=== PATIENT | female | born 1970 | race Caucasian/White ===

== ENCOUNTER 2019-01-13 21:32 | Emergency (ER) | payer OTHER ==
--- NOTE | 2019-01-13 21:45 | ED Physician Documentation ---
PD HPI MHE - Stated complaint Stated Complaint: ANXIETY - Chief complaint Chief Complaint: MHE - History obtained from History obtained from: Patient - History of Present Illness Primary symptom: Depression, Anxiety Timing - onset: Today Contributing factors: Work, Money. 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 Came home from work and has been tearful, anxious, nauseated. This seemed to bring on a headache as well. Partner says she was twitching and not interacting well, but did follow commands and talk with him.) Review of Systems Constitutional: reports: Fatigue. denies: Fever, Chills, Weight Loss Nose: denies: Rhinorrhea / runny nose, Congestion Throat: denies: Sore throat Respiratory: denies: Cough GI: reports: Nausea. denies: Abdominal Pain, Vomiting, Diarrhea Musculoskeletal: denies: Neck pain, Back pain Neurologic: reports: Altered mental status (anxious and feeling jittery/ muscle spasms), Headache. denies: Confused, Head injury Psychiatric: reports: Depressed, Suicidal (vague ideations without plan nor attempt), Anxiety. denies: Homicidal, Insomnia Endocrine: denies: Weight loss, Weight gain PD PAST MEDICAL HISTORY - Past Medical History Cardiovascular: None Respiratory: None Neuro: None Psych: Depression, Anxiety - Present Medications Home Medications: Ambulatory Orders Medication Instructions Recorded Confirmed Lorazepam [Ativan] 1 mg PO BID PRN #15 tablet 01/13/19 - Allergies Allergies/Adverse Reactions: Allergies Allergy/AdvReac Type Severity Reaction Status Date / Time No Known Drug Allergies Allergy Verified 01/13/19 22:30 PD ED PE NORMAL - Vitals Vital signs reviewed: Yes - General General: Alert and oriented X 3, Well developed/nourished, Other (seems distracted and fidgety, but can focus to answer questions. Some muscle twitches randomly. 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, No motor deficit, No sensory deficit, Normal speech Eye Opening: Spontaneous Motor: Obeys Commands Verbal: Oriented GCS Score: 15 - Psych Psych: No: Normal mood (anxious and tearful at times) Results - Vitals Vitals: Vital Signs - 24 hr 01/13/19 01/13/19 01/13/19 21:40 21:50 23:12 Temperature 36.6 C Heart Rate 59 L 56 L 57 L Respiratory 18 16 16 Rate Blood Pressure 154/97 H 148/113 H 134/83 H O2 Saturation 98 97 98 01/13/19 23:34 Temperature 36.4 C L Heart Rate 55 L Respiratory 14 Rate Blood Pressure 134/77 H O2 Saturation 95 Oxygen O2 Source Room air - Labs Labs: Laboratory Tests 01/13/19 01/13/19 01/13/19 22:29 22:29 22:29 WBC 7.8 RBC 4.28 Hgb 13.4 Hct 38.9 MCV 90.9 MCH 31.3 H MCHC 34.4 RDW 12.0 Plt Count 186 MPV 11.1 H Neut # (Auto) 4.1 Lymph # (Auto) 2.9 Ballard # (Auto) 0.4 Eos # (Auto) 0.3 Baso # (Auto) 0.1 Absolute Nucleated RBC 0.00 Nucleated RBC % 0.0 Sodium 138 Potassium 3.8 Chloride 106 Carbon Dioxide 22 Anion Gap 10.0 BUN 18 Creatinine 0.9 Estimated GFR (MDRD) 67 L Glucose 143 H Calcium 9.2 Total Bilirubin 0.7 AST 26 ALT 38 Alkaline Phosphatase 67 Total Protein 7.0 Albumin 4.0 Globulin 3.0 Albumin/Globulin Ratio 1.3 Lipase 32 TSH 3.61 PD MEDICAL DECISION MAKING - ED course Complexity details: re-evaluated patient (feels better with IV fluids and meds for nausea and anxiety. Headache also improved. Improved interaction and not seeming so anxious and not having muscle twitches. ), considered differential, d/w patient Departure - Departure Disposition: 01 Home, Self Care Clinical Impression: Stress reaction Headache Qualifiers: Headache type: unspecified Headache chronicity pattern: acute headache Intractability: not intractable Qualified Code(s): R51 - Headache Condition: Stable Record reviewed to determine appropriate education?: Yes Instructions: ED Stress React Follow-Up: [facility] [Provider Group] [facility] [Provider Group] Prescriptions: Lorazepam [Ativan] 1 mg PO BID PRN #15 tablet PRN Reason: Anxiety Comments: Stay well-hydrated. May help to seek counseling to discuss stress response and methods to deal with anxiety. Start taking your propranolol daily. You can add Lorazepam episodically if needed for anxiety. Try not to take it regularly but just when needed for more significant episodes. Follow-up with primary care regarding ongoing treatment. Discharge Date/Time: 01/14/19 00:00
[2019-01-13] MEDS ORDERED: ONDANSETRON 4 MG/2 ML VIAL IVP STA (22:02)
[2019-01-13] MEDS ORDERED: KETOROLAC 30 MG/ML VIAL IVP STA (22:02)
[2019-01-13] MEDS ORDERED: LORazepam 2 MG/ML VIAL IVP STA (22:02)
[2019-01-13] MEDS ORDERED: SODIUM CHLORIDE 0.9% 1,000 ML IV ONE (22:02)
[2019-01-13 22:34] LABS: BASOPHILS # (AUTO) 0.1 10^3/uL (0.0-0.1); BASOPHILS % (AUTO) 1.2 %; EOSINOPHILS # (AUTO) 0.3 10^3/uL (0.0-0.7); EOSINOPHILS % (AUTO) 3.6 %; HGB - HEMOGLOBIN 13.4 g/dL (12.0-16.0); LYMPHOCYTES # (AUTO) 2.9 10^3/uL (1.5-3.5); LYMPHOCYTES % (AUTO) 37.3 %; MEAN CORPUSCULAR HEMOGLOBIN 31.3 pg (27.0-31.0); MEAN CORPUSCULAR HGB CONC 34.4 g/dL (32.0-36.0); MEAN CORPUSCULAR VOLUME 90.9 fL (81.0-99.0); MEAN PLATELET VOLUME 11.1 fL (7.9-10.8); MONOCYTES # (AUTO) 0.4 10^3/uL (0.0-1.0); MONOCYTES % (AUTO) 5.4 %; NEUTROPHILS # (AUTO) 4.1 10^3/uL (1.5-6.6); NEUTROPHILS % (AUTO) 52.1 %; PLT - PLATELET COUNT 186 10^3/uL (130-450); RED BLOOD COUNT 4.28 10^6/uL (4.20-5.40); WHITE BLOOD COUNT 7.8 x10^3/uL (4.8-10.8)
[2019-01-13 22:52] LABS: ALBUMIN/GLOBULIN RATIO 1.3 (1.0-2.2); BILIRUBIN,TOTAL 0.7 mg/dL (0.2-1.0); CALCIUM 9.2 mg/dL (8.5-10.3); CREATININE 0.9 mg/dL (0.4-1.0)
[2019-01-13] MEDS ORDERED: LORazepam 1 MG TABLET PO STA (23:21)
[2019-01-13 23:35] VITALS: BP 134/77
== END 2019-01-14 | disposition home or self-care (01) ==
LOC: ED 21:32
DX: F43.9 Reaction to severe stress, unspecified (principal); R51 Headache; R11.0 Nausea; F41.9 Anxiety disorder, unspecified; F32.9 Major depressive disorder, single episode, unspecified
CPT/HCPCS: 83690; 96361; 96374; 99283; J2060; J8499; 80053; 84443; 85025

== ENCOUNTER 2020-09-01 16:26 | Outpatient (CLI) | payer OTHER | END 2020-09-01 16:27 | disposition critical access hospital (66) | LOC: EMS 16:26 | PROVIDERS: ATTEND Emergency Medicine | DX: M25.552 Pain in left hip (principal); R51.9 Headache, unspecified; M54.2 Cervicalgia; M54.9 Dorsalgia, unspecified | CPT/HCPCS: A0425; A0427 ==

== ENCOUNTER 2020-09-01 16:50 | Emergency (ER) | payer OTHER ==
--- NOTE | 2020-09-01 16:48 | ED Physician Documentation ---
PD HPI Fall - Stated complaint Stated Complaint: GLF - History obtained from History obtained from: Patient, EMS (pt reportedly fell on snow and fell backward, striking head and back on ground. BRief LOC or dazed. NO vomiting. COnfused. WAs walked inside with pain to left hip. SEemed persistently confused with headache, so pedro called EMS.) - History of Present Illness Mechanism of injury: Slipped (on snow, falling backward and struck back of head, back, and left hip.) Fall distance: Standing position Where injury occurred: Home Timing - onset: How many hours ago (1), Today Injury(ies) location: Head, Neck, Back (lower back), Left Lower Extremity (pain at left hip). No: Chest, Abdomen Quality of pain: Pain, Aching Associated symptoms: LOC (possible brief few seconds.), AMS (does not remember the falling nor events just prior and seems confused enroute, per eMS.), Neck pain. No: Weakness, Paresthesias Symptoms improve with: No: Rest Worsens with: Movement (of low back and neck, and left hip.) Similar symptoms before: Has not had sx before Review of Systems Constitutional: denies: Fever, Chills Nose: denies: Rhinorrhea / runny nose, Congestion Throat: denies: Sore throat Cardiac: denies: Chest pain / pressure Respiratory: denies: Cough GI: denies: Abdominal Pain, Nausea, Vomiting Skin: denies: Abrasion (s), Laceration (s) Musculoskeletal: reports: Neck pain, Back pain Neurologic: reports: Confused, Headache, Head injury. denies: Focal weakness, Numbness PD PAST MEDICAL HISTORY - Past Medical History Cardiovascular: None Respiratory: None Neuro: None Endocrine/Autoimmune: None - Present Medications Home Medications: Ambulatory Orders Medication Instructions Recorded Confirmed Lorazepam [Ativan] 1 mg PO BID PRN #15 tablet 01/13/19 Ibuprofen [Motrin] 600 mg PO TID PRN #25 tab 09/01/20 Oxycodone HCl/Acetaminophen 1 each PO Q6H PRN #14 tab 09/01/20 [Percocet 5-325 mg Tablet] tiZANidine [Zanaflex] 4 mg PO Q8H PRN #20 tab 09/01/20 - Allergies Allergies/Adverse Reactions: Allergies Allergy/AdvReac Type Severity Reaction Status Date / Time No Known Drug Allergies Allergy Verified 09/01/20 16:58 PD ED PE NORMAL - Vitals Vital signs reviewed: Yes - General General: Alert and oriented X 3 (oriented here but no memory of the injury, seems somewhat sluggish to answer questions, but does so correctly. ), Well developed/nourished - HEENT HEENT: Other (back of head tender without obvious deformity.) - Neck Neck: Supple, no meningeal sign, Other (mid to lower neck tender without obvious deformity.) - Cardiac Cardiac: RRR, No murmur - Respiratory Respiratory: Clear bilaterally - Abdomen Abdomen: Soft, Non tender - Back Back: Other (tender lower thoracic and mid to lower lumbar area soft tissue. LEft lateral hip with tenderness. No deformityh.) - Derm Derm: Normal color, Warm and dry - Extremities Extremities: Other (left lateral hip with tenderness without deformity. PAssive ROM WIthout pain in socket. ) - Neuro Neuro: Alert and oriented X 3, No motor deficit, Normal speech Results - Vitals Vitals: Vital Signs - 24 hr 09/01/20 09/01/20 09/01/20 16:58 17:08 18:50 Temperature 36.4 C L 36.6 C Heart Rate 70 81 80 Respiratory 18 16 16 Rate Blood Pressure 154/78 H 162/78 H 150/80 H O2 Saturation 98 94 94 Oxygen O2 Source Room air - Rads (name of study) spine cT (neck/thoracic/lumbar) Radiology: Prelim report reviewed (no fractures), See rad report head cT Radiology: Prelim report reviewed (no ICH nor fractures.), See rad report pelvic cT Radiology: Prelim report reviewed (no fractures), See rad report PD MEDICAL DECISION MAKING - ED course Complexity details: considered differential (mild concussion. SEeming more alert and readily conversant after awhile and imaging. LESs hurting with IV pain meds. ), d/w patient Departure - Departure Disposition: 01 Home, Self Care Clinical Impression: Fall from slipping on snow Qualifiers: Encounter type: initial encounter Qualified Code(s): W00.9XXA - Unspecified fall due to ice and snow, initial encounter Head contusion Qualifiers: Encounter type: initial encounter Contusion of head detail: scalp Qualified Code(s): S00.03XA - Contusion of scalp, initial encounter Hip strain Qualifiers: Encounter type: initial encounter Laterality: left Qualified Code(s): S76.012A - Strain of muscle, fascia and tendon of left hip, initial encounter Back contusion Qualifiers: Encounter type: initial encounter Laterality: unspecified laterality Qualified Code(s): S20.229A - Contusion of unspecified back wall of thorax, initial encounter Mild concussion Qualifiers: Encounter type: initial encounter Loss of consciousness presence/duration: with LOC of unspecified duration Qualified Code(s): S06.0X9A - Concussion with loss of consciousness of unspecified duration, initial encounter Condition: Stable Record reviewed to determine appropriate education?: Yes Instructions: ED Concussion, ED Contusion Back Prescriptions: Ibuprofen [Motrin] 600 mg PO TID PRN #25 tab PRN Reason: Pain Oxycodone HCl/Acetaminophen [Percocet 5-325 mg Tablet] 1 each PO Q6H PRN #14 tab PRN Reason: pain tiZANidine [Zanaflex] 4 mg PO Q8H PRN #20 tab PRN Reason: Spasms Comments: The scan pictures of your head spine and pelvis/hip are all normal without any signs of bleeding fractures or obvious organ injury. You will likely has headache along with some slower thought process and likely off balance for a couple of days with a mild concussion. Typically this will improve after a few days. I would anticipate your being sore in the back and hip as well from the fall. Activity as tolerated. Use of anti-inflammatories such as ibuprofen 3 times a day with food for the next several days to a week. To that add tizanidine muscle relaxant if needed for spasms and stiffness and Tylenol if needed for pain. Add oxycodone if needed for worse pain. Follow-up with your primary care if not improved well over the next several days and resolved by 5 to 7 days. Discharge Date/Time: 09/01/20 18:59
[2020-09-01] MEDS ORDERED: SODIUM CHLORIDE 0.9% 1,000 ML IV STA (16:57)
[2020-09-01] MEDS ORDERED: KETOROLAC 30 MG/ML VIAL IVP STA (16:59)
[2020-09-01] MEDS ORDERED: MORPHINE 2 MG/ML CARPUJECT IVP STA (16:59)
--- NOTE | 2020-09-01 17:56 | CT Report ---
PROCEDURE: HEAD WO INDICATIONS: fall with pain head/neck/back/left pelvis TECHNIQUE: Noncontrast 4.5 mm thick angled axial sections acquired from the foramen magnum to the vertex. For r adiation dose reduction, the following was used: automated exposure control, adjustment of mA and/or kV according to patient size. COMPARISON: Correlation is made with the accompanying cervical spine CT, 09/01/2020. FINDINGS: Image quality: Excellent. CSF spaces: Basal cisterns are patent. No extra-axial fluid collections. Ventricles are normal in size and shape. Brain: No midline shift. No intracranial masses or hemorrhage. Herman-white matter interface is norm al. Skull and face: Calvarium and visualized facial bones are intact, without suspicious lesions. Sinuses: Visualized sinuses and mastoids are clear. IMPRESSION: No intracranial hemorrhage is seen. No significant intracranial abnormality is seen. Reviewed by: Daniel Layne MD on 09/01/2020 4:55 PM [place] Approved by: Daniel Layne MD on 09/01/2020 4:55 PM [facility] Station ID: [id number]
--- NOTE | 2020-09-01 17:58 | CT Report ---
PROCEDURE: CERVICAL SPINE WO INDICATIONS: fall with pain head/neck/back/left pelvis TECHNIQUE: Noncontrast 3 mm thick sections acquired from the skull base to the T4 level. Sagittal and coronal r eformats were then constructed. For radiation dose reduction, the following was used: automated exp osure control, adjustment of mA and/or kV according to patient size. COMPARISON: Correlation is made with the accompanying head CT, 09/01/2020. FINDINGS: Image quality: Excellent. Bones: No fractures or dislocations. Visualized superior ribs are intact. Mild, age-appropriate de generative changes are seen. Soft tissues: Prevertebral soft tissues are normal in thickness. No paravertebral hematomas. No ap ical pneumothoraces. IMPRESSION: Negative for acute fracture. Reviewed by: Daniel Layne MD on 09/01/2020 4:56 PM [place] Approved by: Daniel Layne MD on 09/01/2020 4:56 PM [facility] Station ID: [id number]
--- NOTE | 2020-09-01 18:07 | CT Report ---
PROCEDURE: THORACIC SPINE WO INDICATIONS: fall with pain head/neck/back/left pelvis TECHNIQUE: Noncontrast 3 mm thick sections acquired through the region of interest in the thoracic spine. Sagit sara and coronal reformats were then constructed. For radiation dose reduction, the following was used : automated exposure control, adjustment of mA and/or kV according to patient size. COMPARISON: Correlation is made with the accompanying CT examinations, 09/01/2020. FINDINGS: Image quality: Motion artifact is noted. Bones: There is normal overall bony alignment. No acute vertebral body compression fractures. No s uspicious sclerotic or lytic bony lesions. Central spinal canal is of normal overall caliber. Soft tissues: No paravertebral masses or hematomas. Mild dependent atelectasis can be seen. Cholecy stectomy clips are seen. IMPRESSION: No acute fractures are seen. Incidental note is made of: Dependent atelectasis Cholecystectomy clips Reviewed by: Daniel Layne MD on 09/01/2020 5:06 PM [facility] Approved by: Daniel Layne MD on 09/01/2020 5:06 PM [facility] Station ID: [id number]
--- NOTE | 2020-09-01 18:08 | CT Report ---
PROCEDURE: PELVIS WO INDICATIONS: fall with pain head/neck/back/left pelvis TECHNIQUE: Noncontrast 3 mm axial sections acquired through the bony pelvis, with coronal and sagittal reformatt ing. For radiation dose reduction, the following was used: automated exposure control, adjustment of mA and/or kV according to patient size. COMPARISON: Correlation is made with the accompanying CT examinations, 09/01/2020. FINDINGS: Image quality: Excellent. Bones: No displaced fractures are seen. No dislocations are seen. Mild degenerative changes are seen of the sacroiliac joints, without ankylosis. Soft tissues: This patient is status post hysterectomy. No adnexal masses can be seen. No dilated l oops of bowel are seen. No free air or significant free fluid can be seen. No bladder wall thickening can be seen. No inguinal hernias are seen. No enlarged inguinal or pelvic lymph nodes are seen. Not e is made of pelvic phleboliths. IMPRESSION: Negative for acute fracture. Incidental note is made of: Hysterectomy Reviewed by: Daniel Layne MD on 09/01/2020 5:07 PM [place] Approved by: Daniel Layne MD on 09/01/2020 5:07 PM [facility] Station ID: [id number]
[2020-09-01] MEDS ORDERED: HYDROmorphone 1 MG/ML CARPUJECT IVP STA (18:11)
--- NOTE | 2020-09-01 18:12 | CT Report ---
PROCEDURE: LUMBAR SPINE WO INDICATIONS: fall with pain head/neck/back/left pelvis TECHNIQUE: Noncontrast 3 mm thick sections acquired from the T12 level to the sacrum. Sagittal and coronal refo rmats were constructed. For radiation dose reduction, the following was used: automated exposure co ntrol, adjustment of mA and/or kV according to patient size. COMPARISON: Correlation is made with the other accompanying CT examinations, 09/01/2020 FINDINGS: Image quality: Excellent. Bones: There is normal bony alignment. No acute vertebral body compression fractures. No suspiciou s lytic or blastic bony lesions. Central spinal caliber is of normal overall caliber. No pars defec ts. T12-L1: Normal in appearance. L1-L2: Normal in appearance. L2-L3: Normal in appearance. L3-L4: The disc height is well-preserved. Mild disc bulge is seen, which is eccentric to the left. There is mild to moderate left-sided and minimal right-sided neuroforaminal narrowing seen. No signif icant central canal narrowing is seen. L4-L5: The disc height is well-preserved. Mild disc bulge is seen. There is a left foraminal disc protrusion, as on series 6 image 60. Mild facet hypertrophy is seen. There is moderate to severe lef t-sided and moderate right-sided neuroforaminal narrowing seen. Mild central canal narrowing is seen . L5-S1: The disc height is well-preserved. Mild disc bulge is seen. Mild facet hypertrophy is seen. There is minimal right-sided and moderate left-sided neuroforaminal narrowing seen. Mild central canal narrowing is seen. Soft tissues: Likely left kidney parapelvic cysts are seen. No retroperitoneal masses or hematomas. Visualized aorta is normal in caliber. Atherosclerotic calcification is seen. IMPRESSION: No acute fractures are seen. Lower lumbar spine degenerative changes are seen, which are worst at L4-L5 and L5-S1. Incidental note is made of: Likely left kidney parapelvic cysts Reviewed by: Daniel Layne MD on 09/01/2020 5:11 PM [facility] Approved by: Daniel Layne MD on 09/01/2020 5:11 PM [facility] Station ID: [id number]
[2020-09-01] MEDS ORDERED: oxyCODONE/ACET 5/325 Prepack 4 PO STA (18:39)
[2020-09-01 18:50] VITALS: BP 150/80
== END 2020-09-01 18:59 | disposition home or self-care (01) ==
LOC: EDUNIT# → ED 16:50
DX: S06.0X1A Concussion with loss of consciousness of 30 minutes or less, initial encounter (principal); S20.229A Contusion of unspecified back wall of thorax, initial encounter; S00.03XA Contusion of scalp, initial encounter; S76.012A Strain of muscle, fascia and tendon of left hip, initial encounter; W00.9XXA Unspecified fall due to ice and snow, initial encounter
CPT/HCPCS: 70450; 72125; 72128; 72131; 72192; 96361; 96374; 96375; 99284; J1170